=== PATIENT | female | born 1965 | race Caucasian/White ===

== ENCOUNTER 2021-08-15 08:49 | Emergency (ER) | payer OTHER, SELFPAY ==
[2021-08-15 09:01] VITALS: BP 133/78; PULSE 77; RESP 18; TEMP 36.1; O2SAT 99; BMI 36.6
--- NOTE | 2021-08-15 10:12 | ED.SKABFB ---
HPI - Skin/Abscess/Foreign Bdy General Chief complaint: Wound/Laceration Stated complaint: abscess on lower abd Time Seen by Provider: 08/15/21 09:46 Source: patient Mode of arrival: ambulatory Limitations: no limitations History of Present Illness HPI narrative: 56 y/o female his to the ER for evaluation of a abscess on her right lower quadrant of her abdomen. She reports the abscess started 2 days ago. It is red, warm, painful. She denies any fever or chills. She attempted to drain the pus at home but was unsuccessful. She reports a history of several abscesses in the past and wants to know why she keeps getting them. She denies history of diabetes. She denies any IVDA. MD complaint: abscess/boil Onset (ago): day(s) (2) Tetanus up to date: yes Severity: moderate Severity scale (1-10): 7 Quality: aching Pain Consistency: constant Exacerbating factors: palpation Context: none Associated symptoms: denies other symptoms Treatments prior to arrival: attempted to drain pus at home Related Data Previous Rx's Medication Instructions Recorded cephalexin 500 mg capsule 500 mg PO Q6H 7 Days #28 cap 08/15/21 doxycycline hyclate 100 mg tablet 100 mg PO BID #14 tab 08/15/21 hydrocodone 5 mg-acetaminophen 325 1 tab PO BID PRN #4 tab 08/15/21 mg tablet Allergies Allergy/AdvReac Type Severity Reaction Status Date / Time acetaminophen AdvReac Unknown FROM Unverified 12/21/19 16:38 TYLENOL #3 DIZZY, NAUSEA codeine [Codeine] AdvReac Unknown FROM Unverified 12/21/19 16:38 TYLENOL #3 DIZZY, NAUSEA Review of Systems Review of Systems: Constitutional: No Fever, No Chills Cardiovascular: No Chest Pain, No SOB Gastrointestinal: No Nausea, No Vomiting Musculoskeletal: No joint pain, No Myalgias Skin: + Skin Lesions, No rash Neuro: No Weakness, No Dizziness, No Headache Psych: No Anxiety/Panic Heme/Lymph: No Bruising, No Lymphadenopathy PMFSH Social History Social History Advance Directives: No Advance Directives Information Provided: No Physical Exam Vital Signs: Vital Signs: Last Vital Signs Temp 97 F 08/15/21 09:01 Pulse 77 08/15/21 09:01 Resp 18 08/15/21 09:01 BP 133/78 08/15/21 09:01 Pulse Ox 99 08/15/21 09:01 BMI result Body Mass Index 36.6 Appearance: Alert. Oriented X3. No acute distress. HEENT: normal external inspection Neck: Normal inspection. Neck supple. CVS: Normal heart rate and rhythm. Pulses normal. Respiratory: No respiratory distress. Speaks in complete sentences Abdomen: right lower quadrant of the abdomen with a moderate sized oval area approximately 7-8 cm wide with erythema and warmth, mild induration, no fluctuance. central area of scabbing, unable to express any purulent material, tender. Skin: Skin warm and dry. Normal skin color. Normal skin turgor. No rashes. Extremities: Normal inspection x4 Neuro: Oriented X 3. Grossly normal, nonfocal Course Course Course Narrative: 56-year-old female presents to the ER with a superficial cellulitis to her abdominal wall. She has no systemic signs of infection. The area is not fluctuant or amenable to drainage at this time. Will prescribed oral antibiotics for cellulitis, the area was marked with a skin marker and patient was instructed to monitor for worsening infection. She will follow-up with her doctor. Stable for discharge home. Critical Care Time Critical Care Time Critical Care Time: No Discharge Plan Discharge Clinical Impression: Abscess Patient Disposition: Home, Self-Care Instructions: Abscess (ED) Additional Instructions: Take the prescribed antibiotics as directed, complete the entire course. Use warm compresses to the area several times per day. Follow-up with your doctor in 1 week. If you have worsening pain, redness, swelling or develops fever chills cardiac doctor come back to the emergency room for further evaluation. Prescriptions: New doxycycline hyclate 100 mg tablet 100 mg PO BID Qty: 14 0RF cephalexin 500 mg capsule 500 mg PO Q6H 7 Days Qty: 28 0RF hydrocodone-acetaminophen 5-325 mg tablet 1 tab PO BID PRN (Reason: severe pain (scale score 7-10)) Qty: 4 0RF Interventions: ED Discharge Assessment Last Done: 08/15/21 10:40 Discharge Date/Time: 08/15/21 10:41
== END 2021-08-15 10:41 | disposition home or self-care (01) ==
PROVIDERS: Emergency Provider Emergency Medicine
DX: L02.211 Cutaneous abscess of abdominal wall (principal)
CPT/HCPCS: 99283